=== PATIENT | female | born 1990 | race Caucasian/White ===

== ENCOUNTER 2016-12-19 05:22 | Inpatient (IN) | payer BC ==
[2016-12-19] MEDS ORDERED: Metoclopramide 10 MG/2 ML SDV IVPUSH ONE (05:32)
[2016-12-19] MEDS ORDERED: Citric Acid/Sodium Citrate Solution 30 ML Cup PO ONE (05:32)
[2016-12-19] MEDS ORDERED: Sodium Chloride 0.9% 10 ML Syringe FLUSH PRN (05:32)
[2016-12-19] MEDS ORDERED: ceFAZolin 2 GM in Premix Bag 1 BAG IV ONE (05:32)
[2016-12-19] MEDS ORDERED: Lactated Ringers 1,000 ML IV SCH (05:45)
[2016-12-19] MEDS ORDERED: Ketorolac 30 MG/ML SDV ONE (06:44)
[2016-12-19] MEDS ORDERED: Oxytocin 10 Units/1 ML SDV ONE (06:44)
[2016-12-19] MEDS ORDERED: Ondansetron 4 MG/2 ML SDV ONE (06:44)
[2016-12-19] MEDS ORDERED: Morphine PF 10 MG/10 ML SDV ONE (06:44)
[2016-12-19] MEDS ORDERED: Phenylephrine 1% 10 MG/ML SDV ONE (06:44)
[2016-12-19] MEDS ORDERED: ceFAZolin 1 GM Vial ONE (06:45)
--- NOTE | 2016-12-19 06:53 | PCM.PREANE ---
Preanesthetic Assessment - Anesthesia/Transfusion/Family Hx Anesthesia History: Prior Anesthesia Without Reaction Family History of Anesthesia Reaction: No Transfusion History: No Prior Transfusion(s) Intubation History: Unknown - Review of Systems General: No Symptoms Pulmonary: No Symptoms Cardiovascular: No Symptoms Gastrointestinal: No Symptoms Neurological: No Symptoms Other: Reports: None - Physical Assessment Pulse: 98 O2 Sat by Pulse Oximetry: 99 Respiratory Rate: 16 Vital Signs: Last Vital Signs Temp 98.7 F 12/19/16 05:41 Pulse 98 12/19/16 06:01 Resp 16 12/19/16 05:41 BP 135/79 12/19/16 05:41 Pulse Ox 99 12/19/16 06:01 Height: 1.7 m Weight: 88.904 kg ASA Class: 3 Mental Status: Alert & Oriented x3 Airway Class: Mallampati = 1 Dentition: Reports: Normal Dentition ROM/Head Extension: Full Lungs: Clear to Auscultation, Normal Respiratory Effort Cardiovascular: Regular Rate, Regular Rhythm - Lab Values: Laboratory Last Values WBC 7.59 K/mm3 (3.98-10.04) 12/19/16 06:15 RBC 4.09 M/mm3 (3.98-5.22) 12/19/16 06:15 Hgb 12.5 gm/L (11.2-15.7) 12/19/16 06:15 Hct 36.6 % (34.1-44.9) 12/19/16 06:15 MCV 89.5 fl (79.4-94.8) 12/19/16 06:15 MCH 30.6 pg (25.6-32.2) 12/19/16 06:15 MCHC 34.2 g/dl (32.2-35.5) 12/19/16 06:15 RDW Std Deviation 42.5 fL (36.4-46.3) 12/19/16 06:15 Plt Count 221 K/mm3 (182-369) 12/19/16 06:15 MPV 10.1 fl (9.4-12.3) 12/19/16 06:15 Neut % (Auto) 68.9 % (34.0-71.1) 12/19/16 06:15 Lymph % (Auto) 19.2 % (19.3-51.7) L 12/19/16 06:15 [place] % (Auto) 10.4 % (4.7-12.5) 12/19/16 06:15 Eos % (Auto) 0.3 (0.7-5.8) L 12/19/16 06:15 Baso % (Auto) 0.3 % (0.1-1.2) 12/19/16 06:15 Neut # (Auto) 5.23 K/mm3 (1.56-6.13) 12/19/16 06:15 Lymph # (Auto) 1.46 K/mm3 (1.18-3.74) 12/19/16 06:15 [place] # (Auto) 0.79 K/mm3 (0.24-0.36) H 12/19/16 06:15 Eos # (Auto) 0.02 K/mm3 (0.04-0.36) L 12/19/16 06:15 Baso # (Auto) 0.02 K/mm3 (0.01-0.08) 12/19/16 06:15 - Allergies Allergies/Adverse Reactions: Allergies Allergy/AdvReac Type Severity Reaction Status Date / Time sulfamethoxazole Allergy Anaphylactic Verified 12/19/16 05:32 [From Bactrim] Shock trimethoprim [From Bactrim] Allergy Anaphylactic Verified 12/19/16 05:32 Shock - Blood Blood Available: Yes - Anesthesia Plan Pre-Op Medication Ordered: None - Acknowledgements Anesthesia Type Planned: Spinal Pt an Appropriate Candidate for the Planned Anesthesia: Yes Alternatives and Risks of Anesthesia Discussed w Pt/Guardian: Yes Pt/Guardian Understands and Agrees with Anesthesia Plan: Yes PreAnesthesia Questionnaire Respiratory History: Reports: Other (See Below) Other Respiratory History: Latent TB 2011, treated. 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: Endocrine/Metabolic History: Reports: Diabetes, Type I Other Endocrine/Metabolic History: hypothyroid - Past Surgical History HEENT Surgical History: Reports: Tonsillectomy Other HEENT Surgeries/Procedures: [place] teeth - SUBSTANCE USE Smoking Status *Q: Never Smoker Second Hand Smoke Exposure: Yes Recreational Drug Use History: No - HOME MEDS Home Medications: Home Meds Insulin Aspart [NovoLOG] 11/15/14 [History] Levothyroxine Sodium [Levothyroxine Sodium] 150 mcg PO DAILY 11/15/14 [History] PNV95/Ferrous Fumarate/FA [ Tablet] 1 tab PO DAILY 12/19/16 [History] - CURRENT (IN HOUSE) MEDS Current Meds: Current Medications Lactated Ringer's (Ringers, Lactated) 1,000 mls @ 125 mls/hr IV ASDIRECTED KESHIA Last Admin: 12/19/16 06:26 Dose: 125 mls/hr Sodium Chloride (Saline Flush) 10 ml FLUSH ASDIRECTED PRN PRN Reason: Keep Vein Open Discontinued Medications Cefazolin Sodium (Ancef) Confirm Administered Dose 2 gm .ROUTE .STK-MED ONE Stop: 12/19/16 06:46 Citric Acid/Sodium Citrate (Bicitra Solution) 30 ml PO ONETIME ONE Stop: 12/19/16 05:33 Cefazolin Sodium/Dextrose 2 gm (/ Premix) 50 mls @ 100 mls/hr IV ONETIME ONE Stop: 12/19/16 06:01 Ketorolac Tromethamine (Toradol) Confirm Administered Dose 30 mg .ROUTE .STK- MED ONE Stop: 12/19/16 06:45 Metoclopramide HCl (Reglan) 10 mg IVPUSH ONETIME ONE Stop: 12/19/16 05:33 Morphine Sulfate (Duramorph Pf) Confirm Administered Dose 10 mg .ROUTE .STK-MED ONE Stop: 12/19/16 06:45 Ondansetron HCl (Zofran) Confirm Administered Dose 4 mg .ROUTE .STK-MED ONE Stop: 12/19/16 06:45 Oxytocin (Pitocin) Confirm Administered Dose 10 unit .ROUTE .STK-MED ONE Stop: 12/19/16 06:45 Phenylephrine HCl (Rene-Synephrine) Confirm Administered Dose 10 mg .ROUTE .STK- MED ONE Stop: 12/19/16 06:45
[2016-12-19] MEDS ORDERED: Bupivacaine 0.5% 30 ML SDV ONE (07:06)
[2016-12-19] MEDS ORDERED: Ondansetron 4 MG/2 ML SDV IVPUSH PRN (08:57)
--- NOTE | 2016-12-19 08:58 | PCM.POSTAN ---
POST ANESTHESIA ASSESSMENT - MENTAL STATUS Mental Status: Alert, Oriented - VITAL SIGNS Pulse Rate: 74 SaO2: 96 Resp Rate: 11 Blood Pressure: 111/71 Temperature: 97.8 F - RESPIRATORY Respiratory Status: Respiratory Rate WNL, Airway Patent, O2 Saturation Stable - CARDIOVASCULAR CV Status: Pulse Rate WNL, Blood Pressure Stable - GASTROINTESTINAL GI Status: No Symptoms - PAIN Pain Score: 0 - POST OP HYDRATION Hydration Status: Adequate & Stable
--- NOTE | 2016-12-19 09:12 | PCM.OPNOTE ---
- General Post-Op/Procedure Note Date of Surgery/Procedure: 12/19/16 Operative Procedure(s): repeat section Findings: Thin lower uterine segment, normal tubes and ovaries, viable female, weight 8# 7oz, apgars 8/9 at 0816 Pre Op Diagnosis: type 1 diabetes, at 37w6d, prior section Post-Op Diagnosis: Same Primary Surgeon: Krystle Colon Anesthesia Provider: Yonathan Aleman Fishing Floats Assembler: Valdemar Woods Reason Fishing Floats Assembler Was Necessary: standard of care, decrease length of anesthesia time, retraction and positioning. Pathology: none Fluid Replacement, Intraop: 2,400 Output, Urine Amount: 100 EBL in mLs: 500 Complications: None Condition: Good Free Text/Narrative:: The patient was taken to the operating room where spinal anesthesia was initiated and found to be adequate. The patient was prepped and draped in the usual sterile fashion in the dorsal supine position with a leftward tilt. A Pfannenstiel skin incision was made with the scalpel and carried through to the underlying layer of fascia. The fascia was incised in the midline and extended laterally using Mejia scissors. Brina clamps were used to elevate the superior aspect of the fascial incision, which was elevated, and the underlying rectus muscles were dissected off bluntly and using Mejia scissors. Attention was then turned to the inferior aspect of the fascial incision, which in similar fashion was grasped with Brina clamps, elevated, and the underlying rectus muscles were dissected off bluntly and using the mejia. The rectus muscles were dissected in the midline. The peritoneum was entered bluntly; this incision was extended superiorly and inferiorly with good visualization of the bladder. The bladder blade was inserted. The vesicouterine peritoneum was identified and entered sharply using Metzenbaum scissors. This incision was extended laterally and the bladder flap was created digitally. The bladder blade was reinserted. The lower uterine segment was incised in a transverse fashion using the scalpel and with digital traction. Clear fluid was noted. The infant was subsequently delivered by flexing the head to the incision. Body and shoulders followed without difficulty. The cord was clamped and cut. The was subsequently handed to the awaiting underwater photographer whose presence had been requested.. The placenta was delivered spontaneously intact with a three-vessel cord noted. The uterus was exteriorized and cleared of all clots and debris. The uterine incision was repaired in 2 layers using 0 monocryl. Hemostasis was visualized. The uterus was returned to the abdomen. Hemostasis was visualized bilaterally. The uterine incision was reexamined and it was noted to be hemostatic. The pelvis was copiously irrigated. The fascia was closed with 1 PDS suture, and the skin was closed with 3-0 monocryl. Sponge, lap, and instrument counts were correct x2. The patient was stable at the completion of the procedure and was subsequently transferred to the recovery room in stable condition.
[2016-12-19] MEDS ORDERED: ePHEDrine 50 MG/ML SDV IVPUSH PRN (10:06)
[2016-12-19] MEDS ORDERED: diphenhydrAMINE 50 MG/ML SDV IVPUSH PRN (10:06)
[2016-12-19] MEDS ORDERED: Naloxone 0.4 MG/ML SDV IVPUSH PRN (10:06)
[2016-12-19] MEDS ORDERED: Dextrose 5%-Lactated Ringers 1,000 ML IV SCH (10:06)
[2016-12-19] MEDS ORDERED: Lanolin 100% Cream 7 GM Tube TOP PRN (10:06)
[2016-12-19] MEDS: Ketorolac 30 MG/ML SDV IVPUSH SCH ×2 (14:47→20:37)
[2016-12-20] MEDS: Acetaminophen/oxyCODONE 325-5 MG Tab PO PRN ×4 (00:26→23:00)
[2016-12-20] MEDS: Ketorolac 30 MG/ML SDV IVPUSH SCH (02:43)
[2016-12-20] MEDS: Docusate Sodium 100 MG Cap PO PRN ×2 (08:19→21:01)
[2016-12-20] MEDS: Ibuprofen 600 MG Tab PO PRN ×2 (12:13→21:01)
--- NOTE | 2016-12-20 12:46 | PCM.SN ---
- Free Text/Narrative Note: Post Operative Progress Note POD # 1 Subjective: Doing well overall. Ambulating without difficulty. Lochia minimal. Voiding without difficulty. Tolerating regular diet. Pain controlled with oral medications and is using 1 Percocet for pain control. Breast feeding with minimal difficulty. Objective: Vitals: Physical Exam General: Alert and oriented, no acute distress Lungs: Clear to auscultation bilaterally Heart: Regular rate and rhythm Abdomen: Soft, minimal appropriate tenderness, non-distended, fundus midline, nontender and below the umbilicus Incision: Clean, dry and intact, no erythema, bleeding or drainage, bandage removed and Steri-Strips in place Extremities: No edema Labs: Laboratory Tests 12/19/16 12/19/16 12/19/16 Range/Units 06:05 06:15 08:55 WBC 7.59 (3.98-10.04) K/mm3 RBC 4.09 (3.98-5.22) M/mm3 Hgb 12.5 (11.2-15.7) gm/L Hct 36.6 (34.1-44.9) % MCV 89.5 (79.4-94.8) fl MCH 30.6 (25.6-32.2) pg MCHC 34.2 (32.2-35.5) g/dl RDW Std Deviation 42.5 (36.4-46.3) fL Plt Count 221 (182-369) K/mm3 MPV 10.1 (9.4-12.3) fl Neut % (Auto) 68.9 (34.0-71.1) % Lymph % (Auto) 19.2 L (19.3-51.7) % [place] % (Auto) 10.4 (4.7-12.5) % Eos % (Auto) 0.3 L (0.7-5.8) Baso % (Auto) 0.3 (0.1-1.2) % Neut # (Auto) 5.23 (1.56-6.13) K/mm3 Lymph # (Auto) 1.46 (1.18-3.74) K/mm3 [place] # (Auto) 0.79 H (0.24-0.36) K/mm3 Eos # (Auto) 0.02 L (0.04-0.36) K/mm3 Baso # (Auto) 0.02 (0.01-0.08) K/mm3 POC Glucose 79 (70-105) mg/dL Blood Type A POSITIVE Gel Antibody Screen Negative 12/20/16 Range/Units 06:23 WBC 8.78 (3.98-10.04) K/mm3 RBC 3.54 L (3.98-5.22) M/mm3 Hgb 10.6 L (11.2-15.7) gm/L Hct 32.3 L (34.1-44.9) % MCV 91.2 (79.4-94.8) fl MCH 29.9 (25.6-32.2) pg MCHC 32.8 (32.2-35.5) g/dl RDW Std Deviation 42.5 (36.4-46.3) fL Plt Count 193 (182-369) K/mm3 MPV 10.2 (9.4-12.3) fl Neut % (Auto) 71.1 (34.0-71.1) % Lymph % (Auto) 17.5 L (19.3-51.7) % [place] % (Auto) 10.0 (4.7-12.5) % Eos % (Auto) 0.6 L (0.7-5.8) Baso % (Auto) 0.1 (0.1-1.2) % Neut # (Auto) 6.24 H (1.56-6.13) K/mm3 Lymph # (Auto) 1.54 (1.18-3.74) K/mm3 [place] # (Auto) 0.88 H (0.24-0.36) K/mm3 Eos # (Auto) 0.05 (0.04-0.36) K/mm3 Baso # (Auto) 0.01 (0.01-0.08) K/mm3 POC Glucose (70-105) mg/dL Blood Type Gel Antibody Screen Patient reports that her blood sugars have been running a little bit low ranging from 95 last evening to 60s and 70s throughout the night. This morning he was running a little bit high at around 177 prior to lunch. She is continuing to manage her type 1 diabetes with her pump. ASSESSMENT: 26-year-old female G 3 P 3003 s/p repeat section POD #1 for history of section, complicated by type 1 diabetes PLAN: Doing well Breast feeding with minimal difficulty. Assist as needed Incision healing well. Continue to keep clean and dry. Lochia minimal. Continue to monitor for appropriate lochia. Continue routine post-operative care Patient continue management of her type 1 diabetes with home insulin pump. Anticipate discharge home tomorrow Valdemar Woods MD 12:45 PM 12/20/2016
[2016-12-21] MEDS: Ibuprofen 600 MG Tab PO PRN ×2 (03:58→11:09)
[2016-12-21 06:13] VITALS: BP 106/70
[2016-12-21] MEDS: Acetaminophen/oxyCODONE 325-5 MG Tab PO PRN (06:57)
[2016-12-21] MEDS: Docusate Sodium 100 MG Cap PO PRN (08:48)
--- NOTE | 2016-12-21 10:41 | PCM.SN ---
- Free Text/Narrative Note: Post Operative Progress Note POD # 2 Subjective: Doing well overall. Ambulating without difficulty. Lochia minimal. Lee draining clear urine. Passing flatus. Tolerating regular diet. Pain controlled with oral medications. Breast feeding with minimal difficulty. Objective: Vitals: Last Vital Signs Temp 36.7 C 12/21/16 03:55 Pulse 82 12/21/16 03:55 Resp 13 12/21/16 03:55 BP 106/70 12/21/16 03:55 Pulse Ox 96 12/21/16 03:55 Physical Exam General: Alert and oriented, no acute distress Lungs: Clear to auscultation bilaterally Heart: Regular rate and rhythm Abdomen: Soft, minimal appropriate tenderness, non-distended, fundus midline, nontender and below the umbilicus Incision: Clean, dry and intact, no erythema, bleeding or drainage Extremities: No edema Labs: Laboratory Tests 12/19/16 12/19/16 12/19/16 Range/Units 06:05 06:15 08:55 WBC 7.59 (3.98-10.04) K/mm3 RBC 4.09 (3.98-5.22) M/mm3 Hgb 12.5 (11.2-15.7) gm/L Hct 36.6 (34.1-44.9) % MCV 89.5 (79.4-94.8) fl MCH 30.6 (25.6-32.2) pg MCHC 34.2 (32.2-35.5) g/dl RDW Std Deviation 42.5 (36.4-46.3) fL Plt Count 221 (182-369) K/mm3 MPV 10.1 (9.4-12.3) fl Neut % (Auto) 68.9 (34.0-71.1) % Lymph % (Auto) 19.2 L (19.3-51.7) % [place] % (Auto) 10.4 (4.7-12.5) % Eos % (Auto) 0.3 L (0.7-5.8) Baso % (Auto) 0.3 (0.1-1.2) % Neut # (Auto) 5.23 (1.56-6.13) K/mm3 Lymph # (Auto) 1.46 (1.18-3.74) K/mm3 [place] # (Auto) 0.79 H (0.24-0.36) K/mm3 Eos # (Auto) 0.02 L (0.04-0.36) K/mm3 Baso # (Auto) 0.02 (0.01-0.08) K/mm3 POC Glucose 79 (70-105) mg/dL Blood Type A POSITIVE Gel Antibody Screen Negative 12/20/16 Range/Units 06:23 WBC 8.78 (3.98-10.04) K/mm3 RBC 3.54 L (3.98-5.22) M/mm3 Hgb 10.6 L (11.2-15.7) gm/L Hct 32.3 L (34.1-44.9) % MCV 91.2 (79.4-94.8) fl MCH 29.9 (25.6-32.2) pg MCHC 32.8 (32.2-35.5) g/dl RDW Std Deviation 42.5 (36.4-46.3) fL Plt Count 193 (182-369) K/mm3 MPV 10.2 (9.4-12.3) fl Neut % (Auto) 71.1 (34.0-71.1) % Lymph % (Auto) 17.5 L (19.3-51.7) % [place] % (Auto) 10.0 (4.7-12.5) % Eos % (Auto) 0.6 L (0.7-5.8) Baso % (Auto) 0.1 (0.1-1.2) % Neut # (Auto) 6.24 H (1.56-6.13) K/mm3 Lymph # (Auto) 1.54 (1.18-3.74) K/mm3 [place] # (Auto) 0.88 H (0.24-0.36) K/mm3 Eos # (Auto) 0.05 (0.04-0.36) K/mm3 Baso # (Auto) 0.01 (0.01-0.08) K/mm3 POC Glucose (70-105) mg/dL Blood Type Gel Antibody Screen Fingerstick blood glucose: Patient reports that she continues to be somewhat low overnight but has been supplementing with snacks and also that she is somewhat low with breast-feeding and is also supplementing with snacks. She is denying any hypoglycemic episodes. ASSESSMENT: 26-year-old female G 3 P 3003 s/p repeat section POD #2 for history of section, complicated by type 1 diabetes, hypothyroidism PLAN: Doing well Breast feeding with minimal difficulty. Assist as needed Incision healing well. Continue to keep clean and dry. Lochia minimal. Continue to monitor for appropriate lochia. Continue routine post-operative care Patient plans to contact her regular provider managing her diabetes to come up with a plan for her insulin pump settings Anticipate discharge home today Valdemar Woods MD 11:10 AM 12/21/2016
--- NOTE | 2016-12-21 10:42 | PCM.DCSUM1 ---
Discharge Summary - Hospital Course Free Text/Narrative:: The patient was taken to the operating room where spinal anesthesia was initiated and found to be adequate. The patient was prepped and draped in the usual sterile fashion in the dorsal supine position with a leftward tilt. A Pfannenstiel skin incision was made with the scalpel and carried through to the underlying layer of fascia. The fascia was incised in the midline and extended laterally using Mejia scissors. Brina clamps were used to elevate the superior aspect of the fascial incision, which was elevated, and the underlying rectus muscles were dissected off bluntly and using Mejia scissors. Attention was then turned to the inferior aspect of the fascial incision, which in similar fashion was grasped with Brina clamps, elevated, and the underlying rectus muscles were dissected off bluntly and using the mejia. The rectus muscles were dissected in the midline. The peritoneum was entered bluntly; this incision was extended superiorly and inferiorly with good visualization of the bladder. The bladder blade was inserted. The vesicouterine peritoneum was identified and entered sharply using Metzenbaum scissors. This incision was extended laterally and the bladder flap was created digitally. The bladder blade was reinserted. The lower uterine segment was incised in a transverse fashion using the scalpel and with digital traction. Clear fluid was noted. The infant was subsequently delivered by flexing the head to the incision. Body and shoulders followed without difficulty. The cord was clamped and cut. The infant was subsequently handed to the awaiting entry level electrical engineer whose presence had been requested.. The placenta was delivered spontaneously intact with a three-vessel cord noted. The uterus was exteriorized and cleared of all clots and debris. The uterine incision was repaired in 2 layers using 0 monocryl. Hemostasis was visualized. The uterus was returned to the abdomen. Hemostasis was visualized bilaterally. The uterine incision was reexamined and it was noted to be hemostatic. The pelvis was copiously irrigated. The fascia was closed with 1 PDS suture, and the skin was closed with 3-0 monocryl. Sponge, lap, and instrument counts were correct x2. The patient was stable at the completion of the procedure and was subsequently transferred to the recovery room in stable condition. HPI Initial Comments: The patient was taken to the operating room where spinal anesthesia was initiated and found to be adequate. The patient was prepped and draped in the usual sterile fashion in the dorsal supine position with a leftward tilt. A Pfannenstiel skin incision was made with the scalpel and carried through to the underlying layer of fascia. The fascia was incised in the midline and extended laterally using Mejia scissors. Brina clamps were used to elevate the superior aspect of the fascial incision, which was elevated, and the underlying rectus muscles were dissected off bluntly and using Mejia scissors. Attention was then turned to the inferior aspect of the fascial incision, which in similar fashion was grasped with Brina clamps, elevated, and the underlying rectus muscles were dissected off bluntly and using the mejia. The rectus muscles were dissected in the midline. The peritoneum was entered bluntly; this incision was extended superiorly and inferiorly with good visualization of the bladder. The bladder blade was inserted. The vesicouterine peritoneum was identified and entered sharply using Metzenbaum scissors. This incision was extended laterally and the bladder flap was created digitally. The bladder blade was reinserted. The lower uterine segment was incised in a transverse fashion using the scalpel and with digital traction. Clear fluid was noted. The was subsequently delivered by flexing the head to the incision. Body and shoulders followed without difficulty. The cord was clamped and cut. The was subsequently handed to the awaiting entry level electrical engineer whose presence had been requested.. The placenta was delivered spontaneously intact with a three-vessel cord noted. The uterus was exteriorized and cleared of all clots and debris. The uterine incision was repaired in 2 layers using 0 monocryl. Hemostasis was visualized. The uterus was returned to the abdomen. Hemostasis was visualized bilaterally. The uterine incision was reexamined and it was noted to be hemostatic. The pelvis was copiously irrigated. The fascia was closed with 1 PDS suture, and the skin was closed with 3-0 monocryl. Sponge, lap, and instrument counts were correct x2. The patient was stable at the completion of the procedure and was subsequently transferred to the recovery room in stable condition. Brief History: The patient was taken to the operating room where spinal anesthesia was initiated and found to be adequate. The patient was prepped and draped in the usual sterile fashion in the dorsal supine position with a leftward tilt. A Pfannenstiel skin incision was made with the scalpel and carried through to the underlying layer of fascia. The fascia was incised in the midline and extended laterally using Mejia scissors. Brina clamps were used to elevate the superior aspect of the fascial incision, which was elevated, and the underlying rectus muscles were dissected off bluntly and using Mejia scissors. Attention was then turned to the inferior aspect of the fascial incision, which in similar fashion was grasped with Brina clamps, elevated, and the underlying rectus muscles were dissected off bluntly and using the mejia. The rectus muscles were dissected in the midline. The peritoneum was entered bluntly; this incision was extended superiorly and inferiorly with good visualization of the bladder. The bladder blade was inserted. The vesicouterine peritoneum was identified and entered sharply using Metzenbaum scissors. This incision was extended laterally and the bladder flap was created digitally. The bladder blade was reinserted. The lower uterine segment was incised in a transverse fashion using the scalpel and with digital traction. Clear fluid was noted. The was subsequently delivered by flexing the head to the incision. Body and shoulders followed without difficulty. The cord was clamped and cut. The was subsequently handed to the awaiting entry level electrical engineer whose presence had been requested.. The placenta was delivered spontaneously intact with a three-vessel cord noted. The uterus was exteriorized and cleared of all clots and debris. The uterine incision was repaired in 2 layers using 0 monocryl. Hemostasis was visualized. The uterus was returned to the abdomen. Hemostasis was visualized bilaterally. The uterine incision was reexamined and it was noted to be hemostatic. The pelvis was copiously irrigated. The fascia was closed with 1 PDS suture, and the skin was closed with 3-0 monocryl. Sponge , lap, and instrument counts were correct x2. The patient was stable at the completion of the procedure and was subsequently transferred to the recovery room in stable condition. - Discharge Data Discharge Date: 12/21/16 Discharge Disposition: Home, Self-Care 01 Condition: Good - Discharge Diagnosis/Problem(s) (1) History of section, low transverse SNOMED Code(s): 051671961 ICD Code: Z98.891 - HISTORY OF UTERINE SCAR FROM PREVIOUS SURGERY Status: Acute Current Visit: Yes (2) 37 weeks gestation of SNOMED Code(s): 44462684 ICD Code: Z3A.37 - 37 WEEKS GESTATION OF Status: Acute Current Visit: Yes (3) Status post repeat low transverse section SNOMED Code(s): 910279420, 068506981, 350354831 ICD Code: Z98.891 - HISTORY OF UTERINE SCAR FROM PREVIOUS SURGERY Status: Acute Current Visit: Yes (4) Type 1 diabetes mellitus SNOMED Code(s): 95044383 ICD Code: E10.9 - TYPE 1 DIABETES MELLITUS WITHOUT COMPLICATIONS Status: Acute Current Visit: Yes (5) Hypothyroidism affecting SNOMED Code(s): 313600642 ICD Code: O99.280 - ENDO, NUTRITIONAL AND METAB DISEASES COMP PREG, UNSP TRI ; E03.9 - HYPOTHYROIDISM, UNSPECIFIED Status: Acute Current Visit: Yes - Patient Summary/Data Operative Procedure(s) Performed: repeat section Complications: None Consults: None Hospital Course: The patient was taken to the operating room where spinal anesthesia was initiated and found to be adequate. The patient was prepped and draped in the usual sterile fashion in the dorsal supine position with a leftward tilt. A Pfannenstiel skin incision was made with the scalpel and carried through to the underlying layer of fascia. The fascia was incised in the midline and extended laterally using Mejia scissors. Brina clamps were used to elevate the superior aspect of the fascial incision, which was elevated, and the underlying rectus muscles were dissected off bluntly and using Mejia scissors. Attention was then turned to the inferior aspect of the fascial incision, which in similar fashion was grasped with Brina clamps, elevated, and the underlying rectus muscles were dissected off bluntly and using the mejia. The rectus muscles were dissected in the midline. The peritoneum was entered bluntly; this incision was extended superiorly and inferiorly with good visualization of the bladder. The bladder blade was inserted. The vesicouterine peritoneum was identified and entered sharply using Metzenbaum scissors. This incision was extended laterally and the bladder flap was created digitally. The bladder blade was reinserted. The lower uterine segment was incised in a transverse fashion using the scalpel and with digital traction. Clear fluid was noted. The was subsequently delivered by flexing the head to the incision. Body and shoulders followed without difficulty. The cord was clamped and cut. The infant was subsequently handed to the awaiting entry level electrical engineer whose presence had been requested.. The placenta was delivered spontaneously intact with a three-vessel cord noted. The uterus was exteriorized and cleared of all clots and debris. The uterine incision was repaired in 2 layers using 0 monocryl. Hemostasis was visualized. The uterus was returned to the abdomen. Hemostasis was visualized bilaterally. The uterine incision was reexamined and it was noted to be hemostatic. The pelvis was copiously irrigated. The fascia was closed with 1 PDS suture, and the skin was closed with 3-0 monocryl. Sponge, lap, and instrument counts were correct x2. The patient was stable at the completion of the procedure and was subsequently transferred to the recovery room in stable condition. Patient did well in her postoperative course and on the morning of postoperative day #1 she was meeting all postoperative milestones. Her pain was able to be controlled with oral medications including ibuprofen and occasional Percocet. She is tolerating a regular diet. She was using her insulin pump to control her blood glucose levels and was having some low blood sugar numbers but was not having any signs or symptoms of hypoglycemia. She was able to correct these using small amounts of snacks. She also noticed that she would get low numbers when she was breast-feeding. She was ambulating without difficulty. She was voiding without difficulty. She was breast- feeding without difficulty. In the morning of postoperative day #2 she continued to be postoperative milestones. Her pain had increased somewhat from postoperative day #1 and was still able to be controlled with oral medications. She continues to tolerate a regular diet and continued to note that she was having some low blood sugars with values but denied any hypoglycemic events. She is ambulating without difficulty and was voiding without difficulty. She was passing flatus on postoperative day #2. She desired to be discharged home in the morning of postoperative day #2 she will follow-up with Dr. Colon in 2 weeks for routine postoperative check. - Patient Instructions Diet: Regular Diet as Tolerated Activity: As Tolerated, No Lifting Over 25 Pounds, No Strenuous Activities Activity, Other: Nothing in vagina for 6 weeks Driving: Do Not Drive (While on narcotic medications) Showering/Bathing: May Shower, No Tub Bathing/Swimming Wound/Incision Care: Keep Operative Site/Wound Site Clean and Dry Notify Provider of: Fever, Increased Pain, Swelling and Redness, Drainage, Nausea and/or Vomiting - Discharge Plan Home Medications: Home Meds Insulin Aspart [NovoLOG] 11/15/14 [History] Levothyroxine Sodium 150 mcg PO DAILY 11/15/14 [History] PNV95/Ferrous Fumarate/FA [ Tablet] 1 tab PO DAILY 12/19/16 [History] Acetaminophen/oxyCODONE [Percocet 325-5 MG] 2 tab PO Q6H PRN #20 tablet [Rx] Docusate Sodium [Colace] 100 mg PO Q12H PRN cap 12/21/16 [Rx] Ibuprofen [IJD: Ibuprofen] 600 mg PO Q6H PRN tablet 12/21/16 [Rx] Lanolin [Lansinoh HPA] 1 applic TOP ASDIRECTED PRN tube 12/21/16 [Rx] Patient Handouts: Delivery, Care After, Home Care Instructions for Mom , Delivery Referrals: Krystle Colon MD [Physician] - (Follow-up in 2 weeks for postoperative incision check.) - Discharge Summary/Plan Comment DC Time >30 min.: No - Patient Data Vitals - Most Recent: Last Vital Signs Temp 36.7 C 12/21/16 03:55 Pulse 82 12/21/16 03:55 Resp 13 12/21/16 03:55 BP 106/70 12/21/16 03:55 Pulse Ox 96 12/21/16 03:55 Weight - Most Recent: 88.904 kg I&O - Last 24 hours: Intake & Output 12/20/16 12/21/16 12/21/16 22:59 06:59 14:59 Intake Total 360 240 Balance 360 240 Med Orders - Current: Current Medications Diphenhydramine HCl (Benadryl) 25 mg IVPUSH Q6H PRN PRN Reason: Itching or Nausea Docusate Sodium (Colace) 100 mg PO Q12H PRN PRN Reason: Constipation Last Admin: 12/21/16 08:48 Dose: 100 mg Emollient Ointment (Lansinoh Hpa) 0 gm TOP ASDIRECTED PRN PRN Reason: Sore Nipples Ephedrine Sulfate (Ephedrine Sulfate) 5 mg IVPUSH SEECOMMENT PRN PRN Reason: Other Ibuprofen (Motrin) 600 mg PO Q6H PRN PRN Reason: mild pain or fever Last Admin: 12/21/16 03:58 Dose: 600 mg Naloxone HCl (Narcan) 0.1 mg IVPUSH SEECOMMENT PRN PRN Reason: Respiratory Depression Oxycodone/Acetaminophen (Percocet 325-5 Mg) 2 tab PO Q6H PRN PRN Reason: Pain (moderate 4-6) Last Admin: 12/21/16 06:57 Dose: 2 tab Discontinued Medications Bupivacaine HCl (Marcaine 0.5%) Confirm Administered Dose 30 ml .ROUTE .STK-MED ONE Stop: 12/19/16 07:07 Last Admin: 12/19/16 08:13 Dose: 20 ml Cefazolin Sodium (Ancef) Confirm Administered Dose 2 gm .ROUTE .STK-MED ONE Stop: 12/19/16 06:46 Citric Acid/Sodium Citrate (Bicitra Solution) 30 ml PO ONETIME ONE Stop: 12/19/16 05:33 Last Admin: 12/19/16 07:33 Dose: 30 ml Cefazolin Sodium/Dextrose 2 gm (/ Premix) 50 mls @ 100 mls/hr IV ONETIME ONE Stop: 12/19/16 06:01 Last Admin: 12/19/16 19:34 Dose: Not Given Lactated Ringer's (Ringers, Lactated) 1,000 mls @ 125 mls/hr IV ASDIRECTED [facility] Last Admin: 12/19/16 06:26 Dose: 125 mls/hr Dextrose/Lactated Ringer's (Dextrose 5%-Lactated Ringers) 1,000 mls @ 125 mls/ hr IV ASDIRECTED [facility] Stop: 12/19/16 18:05 Last Admin: 12/19/16 14:48 Dose: Not Given Ketorolac Tromethamine (Toradol) Confirm Administered Dose 30 mg .ROUTE .STK- MED ONE Stop: 12/19/16 06:45 Ketorolac Tromethamine (Toradol) 30 mg IVPUSH Q6H [facility] Stop: 12/20/16 02:31 Last Admin: 12/20/16 02:43 Dose: 30 mg Metoclopramide HCl (Reglan) 10 mg IVPUSH ONETIME ONE Stop: 12/19/16 05:33 Last Admin: 12/19/16 07:33 Dose: 10 mg Morphine Sulfate (Duramorph Pf) Confirm Administered Dose 10 mg .ROUTE .STK-MED ONE Stop: 12/19/16 06:45 Ondansetron HCl (Zofran) Confirm Administered Dose 4 mg .ROUTE .STK-MED ONE Stop: 12/19/16 06:45 Ondansetron HCl (Zofran) 4 mg IVPUSH ONETIME PRN PRN Reason: Nausea/Vomiting Oxytocin (Pitocin) Confirm Administered Dose 10 unit .ROUTE .STK-MED ONE Stop: 12/19/16 06:45 Phenylephrine HCl (Rene-Synephrine) Confirm Administered Dose 10 mg .ROUTE .STK- MED ONE Stop: 12/19/16 06:45 Sodium Chloride (Saline Flush) 10 ml FLUSH ASDIRECTED PRN PRN Reason: Keep Vein Open *Q Meaningful Use (DIS) - VTE *Q VTE Criteria *Q: - Stroke *Q Stroke Criteria *Q: - AMI *Q AMI Criteria *Q:
--- NOTE | 2016-12-21 16:35 | PCM48HPAN ---
Post Anesthesia Note - EVALUATION WITHIN 48HRS OF ANESTHETIC Vital Signs in Normal Range: Yes Patient Participated in Evaluation: No (Patient discharged prior to assessment. Doing well according to RN) Respiratory Function Stable: Yes Airway Patent: Yes Cardiovascular Function Stable: Yes Hydration Status Stable: Yes Pain Control Satisfactory: Yes Nausea and Vomiting Control Satisfactory: Yes Mental Status Recovered: Yes
== END 2016-12-21 11:45 | disposition home or self-care (01) | DRG 540 ==
LOC: JD.OB 05:22
PROVIDERS: ADMIT Obstetrics & Gynecology; ATTEND Obstetrics & Gynecology
PROC: 10D00Z1 Extraction of Products of Conception, Low, Open Approach (ICD-10-PCS; principal; 2016-12-19)
DX: O34.211 Maternal care for low transverse scar from previous cesarean delivery (principal); N85.8 Other specified noninflammatory disorders of uterus; O99.344 Other mental disorders complicating childbirth; O24.02 Pre-existing type 1 diabetes mellitus, in childbirth; E10.9 Type 1 diabetes mellitus without complications; O99.284 Endocrine, nutritional and metabolic diseases complicating childbirth; E03.9 Hypothyroidism, unspecified; F41.9 Anxiety disorder, unspecified; Z3A.38 38 weeks gestation of pregnancy; Z37.0 Single live birth; Z96.41 Presence of insulin pump (external) (internal); Z79.4 Long term (current) use of insulin; Z88.1 Allergy status to other antibiotic agents; Z79.899 Other long term (current) drug therapy
CPT/HCPCS: 01961; 36415; 82962; 85025; 86850; 86900; 86901; A9270-GY; J0690; J1885; J2270; J2370; J2405; J2590; J2765; J7120

== ENCOUNTER 2022-09-04 00:15 | Emergency (ER) | payer BC, OTHER ==
[2022-09-04 02:02] VITALS: BP 124/74; PULSE 80
== END 2022-09-04 01:33 | disposition home or self-care (01) ==
LOC: JD.ED 00:15
DX: M54.2 Cervicalgia (principal); E10.9 Type 1 diabetes mellitus without complications; E03.9 Hypothyroidism, unspecified; Z88.2 Allergy status to sulfonamides; Z79.4 Long term (current) use of insulin; Z79.899 Other long term (current) drug therapy
CPT/HCPCS: 72125; 72125-26; 99283; 99283-25